=== PATIENT | male | born 1995 | race Caucasian/White ===

== ENCOUNTER 2022-02-06 08:49 | Emergency (ER) | payer SELFPAY ==
--- NOTE | 2022-02-06 08:54 | ED.EAR ---
HPI - Ear Problem General Chief complaint: Ear Stated complaint: both ears painful Time Seen by Provider: 02/06/22 08:54 Source: patient and RN notes reviewed History of Present Illness HPI Narrative: Patient is a 26-year-old male who presents the urgent care with complaints of bilateral otalgia and decreased hearing. States that he has been using [id number] drops to the right ear which is produced some drainage. Denies any fever, nausea, vomiting or other upper respiratory complaints. Patient states pain started Sunday and worsened last night. No other acute complaints. No acute distress noted. Patient aware of the plan of care. Some parts of this dictation were generated by voice recognition software and may contain typographical and/or grammatical inaccuracies. Related Data Allergies Allergy/AdvReac Type Severity Reaction Status Date / Time No Known Allergies Allergy Verified 02/06/22 09:01 Review of Systems Review of Systems: CONSTITUTIONAL: Denies fever, chills, or sweats. EYES: Denies visual changes, redness, or discharge. ENT: Denies rhinorrhea, congestion, sore throat. Bilateral otalgia and decreased hearing CARDIOVASCULAR: Denies chest pain, palpitations, or edema. RESPIRATORY: Denies cough or dyspnea. GASTROINTESTINAL: Denies abdominal pain, nausea, vomiting, or diarrhea. GENITOURINARY: Denies dysuria or hematuria. SKIN: Denies rash or itching. MUSCULOSKELETAL: Denies back pain, joint pain, or myalgia. NEUROLOGIC: Denies headache, numbness, or weakness. All other systems reviewed are negative, except as documented in HPI. PMFSH Comments At the time of my signature, I reviewed and agree with the nursing past medical, surgical, social, and family history. There is no relevant family history pertinent to the patient complaint. Exam Narrative: GENERAL: This is a well-nourished, well-developed patient, in no apparent distress. HEAD: normocephalic, atraumatic. EYES: PERRL. Sclera clear/white. Vision is grossly intact. EARS: External ears normal, mild to moderate edema to bilateral auditory canals with yellow serosanguineous drainage from the right, right erythemic/slightly injected right TM without perforation, left TM within normal limits without perforation. Hearing grossly intact. NOSE: External nose normal with no obvious nasal discharge, nares without redness, no rhinorrhea. THROAT: Mucous membranes moist NECK: Neck supple CARDIOVASCULAR: Regular rate and rhythm without murmurs, gallops, or rubs. RESPIRATORY: Clear to auscultation. Breath sounds equal bilaterally. No wheezes, rales, or rhonchi. SKIN: warm, intact with no suspicious lesions or rash, good texture and turgor. NEURO: awake, alert, and oriented to person, place and time. There were no obvious focal neurologic abnormalities. EXTREMITIES: No clubbing, cyanosis, or edema Course Course Level of Care: Express Care Visit Vital Signs Vital signs: Vital Signs Temperature 97.4 F L 02/06/22 08:56 Pulse Rate 88 02/06/22 08:56 Respiratory Rate 20 02/06/22 08:56 Blood Pressure 161/62 H 02/06/22 08:56 Pulse Oximetry 100 02/06/22 08:56 Oxygen Delivery Room Air 02/06/22 08:56 Temperature 97.4 F L 02/06/22 08:56 Pulse Rate 88 02/06/22 08:56 Respiratory Rate 20 02/06/22 08:56 Blood Pressure 161/62 H 02/06/22 08:56 Pulse Oximetry 100 02/06/22 08:56 Oxygen Delivery Room Air 02/06/22 08:56 Reviewed-patient is informed that they may have pre-hypertension or hypertension based on a blood pressure reading in the department. I recommend the patient call the primary care provider listed on their discharge instructions or a physician of their choice this week to arrange follow-up for further evaluation of possible pre-hypertension or hypertension. Medical Decision Making MDM Narrative Medical decision making narrative: Advised patient to use the drops bilateral ears as directed. Do not use anything else in the ear prieto
[2022-02-06 08:56] VITALS: BP 161/62; PULSE 88; RESP 20; TEMP 36.3; O2SAT 100
== END 2022-02-06 09:14 | disposition home or self-care (01) ==
PROVIDERS: Emergency Provider Nurse Practitioner Family
DX: H66.91 Otitis media, unspecified, right ear (principal); H60.503 Unspecified acute noninfective otitis externa, bilateral
CPT/HCPCS: 99213; G0463